=== PATIENT | male | born 1995 | race Caucasian/White ===

== ENCOUNTER 2020-03-07 15:14 | Emergency (ER) | payer SELFPAY ==
[~2020-03-07] VITALS: Ht 170.2 cm; Wt 78.0 kg
[2020-03-07 15:17] VITALS: BP 132/93
[2020-03-07] MEDS ORDERED: LIDOCAINE-MPF 1%, 5ML ONE (15:51)
[2020-03-07] MEDS ORDERED: NEOSPORIN OINT. PKT 1 PACKET ONE (16:11)
== END 2020-03-07 16:27 ==
LOC: ED 16:13
DX: S51.811A Laceration without foreign body of right forearm, initial encounter (principal); X58.XXXA Exposure to other specified factors, initial encounter; Y93.89 Activity, other specified; Y92.098 Other place in other non-institutional residence as the place of occurrence of the external cause; Y99.8 Other external cause status
CPT/HCPCS: 12031; 99284

== ENCOUNTER 2020-04-02 22:47 | Emergency (ER) | payer SELFPAY ==
[~2020-04-02] VITALS: Ht 170.2 cm; Wt 76.9 kg
[2020-04-02 23:32] LABS: BASOPHILS # (AUTO) 0.02 x10^3/uL (0-0.1); BASOPHILS % (AUTO) 0 % (0-1); EOSINOPHILS # (AUTO) 0.05 x10^3/uL (0-0.4); EOSINOPHILS % (AUTO) 1 % (1-7); LYMPHOCYTES # (AUTO) 1.69 x10^3/uL (1-3.4); LYMPHOCYTES % (AUTO) 19 % (22-44); MD NO; MEAN CORPUSCULAR HGB CONC 33.1 g/dL (33.2-36.2); MEAN CORPUSCULAR VOLUME 87.8 fL (81-97); MEAN PLATELET VOLUME 7.1 fL (7.4-10.4); MONOCYTES # (AUTO) 0.64 x10^3/uL (0.2-0.8); MONOCYTES % (AUTO) 7 % (2-9); NEUTROPHILS # (AUTO) 6.73 x10^3/uL (1.8-6.8); NEUTROPHILS % (AUTO) 74 % (42-75); PLATELET COUNT 386 x10^3/uL (130-400); RED BLOOD COUNT 5.61 x10^6/uL (4.38-5.82); RED CELL DISTRIBUTION WIDTH 13.4 % (9.4-14.8)
--- NOTE | 2020-04-02 23:33 | NUR ---
Patient presents to ER c/o vomiting and abd pain x1 day. Patient states he last vomited approx 1 hour ago. Denies trauma. Patient is in NAD. Respirations even and unlabored.
[2020-04-03 00:37] LABS: ALBUMIN 4.2 g/dL (3.4-5.0); CALCIUM 9.1 mg/dL (8.5-10.1); CHLORIDE 105 mmol/L (98-107)
[2020-04-03 00:42] LABS: ALANINE AMINOTRANSFERASE 94 U/L (12-78); ALKALINE PHOSPHATASE 97 U/L (45-117); ANION GAP 4 mmol/L (5-15); BILIRUBIN,TOTAL 0.2 mg/dL (0.2-1.0); CREATININE 1.07 mg/dL (0.7-1.3); TOTAL PROTEIN 7.9 g/dL (6.4-8.2)
[2020-04-03 01:13] VITALS: BP 158/71
== END 2020-04-03 01:24 | disposition home or self-care (01) ==
LOC: ED 23:35
DX: G89.29 Other chronic pain (principal); R10.84 Generalized abdominal pain; R11.2 Nausea with vomiting, unspecified; K58.9 Irritable bowel syndrome, unspecified
CPT/HCPCS: 36415; 74022; 80053; 83690; 85025; 99284

== ENCOUNTER 2020-07-25 16:56 | Emergency (ER) | payer SELFPAY ==
[~2020-07-25] VITALS: Ht 170.2 cm; Wt 78.5 kg
--- NOTE | 2020-07-25 18:30 | NUR ---
PT URINE SENT
[2020-07-25 18:37] LABS: ALANINE AMINOTRANSFERASE 47 U/L (12-78); ALBUMIN 3.3 g/dL (3.4-5.0); ANION GAP 6 mmol/L (5-15); CALCIUM 8.6 mg/dL (8.5-10.1); CHLORIDE 109 mmol/L (98-107); CREATININE 1.13 mg/dL (0.7-1.3)
[2020-07-25 18:40] LABS: ALKALINE PHOSPHATASE 99 U/L (45-117); BILIRUBIN,TOTAL 0.3 mg/dL (0.2-1.0); TOTAL PROTEIN 7.2 g/dL (6.4-8.2)
--- NOTE | 2020-07-25 19:15 | NUR ---
RN CALLED LAB TO SEE IF THEY HAD RUN PT URINE YET, LAB STATED "THEY HAD NOT RECIEVED IT" RN CHECKED TUBE SYSTEM AND URINE WAS IN TUBE IN TUBE PILE FOR UNKOWN REASON AFTER SENT. URINE RESENT BY RN
[2020-07-25 19:23] LABS: BASOPHILS # (AUTO) 0.05 x10^3/uL (0-0.1); BASOPHILS % (AUTO) 1 % (0-1); EOSINOPHILS # (AUTO) 0.08 x10^3/uL (0-0.4); EOSINOPHILS % (AUTO) 1 % (1-7); LYMPHOCYTES # (AUTO) 1.63 x10^3/uL (1-3.4); LYMPHOCYTES % (AUTO) 21 % (22-44); MD NO; MEAN CORPUSCULAR HEMOGLOBIN 29.5 pg (27.5-34.5); MEAN CORPUSCULAR HGB CONC 32.6 g/dL (33.2-36.2); MEAN CORPUSCULAR VOLUME 90.4 fL (81-97); MONOCYTES # (AUTO) 0.62 x10^3/uL (0.2-0.8); MONOCYTES % (AUTO) 8 % (2-9); NEUTROPHILS # (AUTO) 5.33 x10^3/uL (1.8-6.8); NEUTROPHILS % (AUTO) 69 % (42-75); PLATELET COUNT 334 x10^3/uL (130-400); RED BLOOD COUNT 5.41 x10^6/uL (4.38-5.82); RED CELL DISTRIBUTION WIDTH 13.5 % (9.4-14.8)
[2020-07-25 19:26] VITALS: BP 105/54
--- NOTE | 2020-07-25 19:27 | NUR ---
PT RESTING IN BED, PT ON MONITOR. PT DENIED WANTS OR NEEDS AT THIS TIME. RN WILL CONTINUE TO MONITOR PT
[2020-07-25 19:54] LABS: MICROSCOPIC NOT IND
== END 2020-07-25 19:48 | disposition home or self-care (01) ==
LOC: ED 18:03
DX: R10.84 Generalized abdominal pain (principal); R19.7 Diarrhea, unspecified; R53.83 Other fatigue; R94.31 Abnormal electrocardiogram [ECG] [EKG]
CPT/HCPCS: 36415; 80053; 81003; 83690; 85025; 93005; 99284

== ENCOUNTER 2020-08-14 00:24 | Emergency (ER) | payer SELFPAY ==
[~2020-08-14] VITALS: Ht 172.7 cm; Wt 76.7 kg
[2020-08-14 00:25] VITALS: BP 138/87
[2020-08-14] MEDS ORDERED: FAMOTIDINE 20 MG TABLET ONE (00:45)
--- NOTE | 2020-08-14 00:58 | NUR ---
PT REFUSING GI COCKTAIL
[2020-08-14] MEDS ORDERED: MAALOX/HYOSCYAMINE/LIDOCAINE 45 ML BTL PO ONE (01:00)
[2020-08-14] MEDS ORDERED: FAMOTIDINE 20 MG TABLET PO ONE (01:00)
[2020-08-14] MEDS ORDERED: ONDANSETRON ODT 4 MG PO ONE (01:00)
[2020-08-14 01:01] LABS: BASOPHILS % (AUTO) 1 % (0-1); EOSINOPHILS % (AUTO) 2 % (1-7); LYMPHOCYTES % (AUTO) 29 % (22-44); MEAN CORPUSCULAR HEMOGLOBIN 29.4 pg (27.5-34.5); MEAN CORPUSCULAR HGB CONC 32.9 g/dL (33.2-36.2); MEAN PLATELET VOLUME 7.1 fL (7.4-10.4); MONOCYTES % (AUTO) 9 % (2-9); NEUTROPHILS % (AUTO) 60 % (42-75); PLATELET COUNT 350 x10^3/uL (130-400); RED BLOOD COUNT 5.37 x10^6/uL (4.38-5.82); RED CELL DISTRIBUTION WIDTH 13.4 % (9.4-14.8)
[2020-08-14 01:02] LABS: MD NO
[2020-08-14 01:10] LABS: ANION GAP 4 mmol/L (5-15); CALCIUM 8.9 mg/dL (8.5-10.1); CHLORIDE 104 mmol/L (98-107)
[2020-08-14 01:13] LABS: ALANINE AMINOTRANSFERASE 78 U/L (12-78); ALKALINE PHOSPHATASE 105 U/L (45-117); BILIRUBIN,TOTAL 0.4 mg/dL (0.2-1.0); CREATININE 1.02 mg/dL (0.7-1.3); TOTAL PROTEIN 7.9 g/dL (6.4-8.2)
[2020-08-14] MEDS ORDERED: OMNIPAQUE 350 MG/ML, 100ML BOTTLE ONE (01:37)
--- NOTE | 2020-08-14 01:54 | NUR ---
PATIENT RETURNED FROM CT.
== END 2020-08-14 04:33 | disposition home or self-care (01) ==
LOC: ED 01:35
DX: K29.00 Acute gastritis without bleeding (principal); R10.84 Generalized abdominal pain; R11.2 Nausea with vomiting, unspecified; R10.12 Left upper quadrant pain; R53.83 Other fatigue
CPT/HCPCS: 36415; 74177; 80053; 83690; 85025; 99285; Q9967

== ENCOUNTER 2021-07-23 22:16 | Emergency (ER) | payer MEDICAID ==
[~2021-07-23] VITALS: Ht 172.7 cm; Wt 82.2 kg
[2021-07-23 22:20] VITALS: BP 148/90
--- NOTE | 2021-07-23 23:30 | NUR ---
Patient given discharge instructions and they have confirmed that they understand the instructions. Patient ambulatory with steady gait. NAD, all questions answered appropriately, denies additional needs at this time. No personal belongings left in room after discharge.
== END 2021-07-23 23:31 | disposition home or self-care (01) ==
LOC: ED 23:30
DX: S62.344A Nondisplaced fracture of base of fourth metacarpal bone, right hand, initial encounter for closed fracture (principal); S62.346A Nondisplaced fracture of base of fifth metacarpal bone, right hand, initial encounter for closed fracture; X58.XXXA Exposure to other specified factors, initial encounter; Y93.89 Activity, other specified; Y92.89 Other specified places as the place of occurrence of the external cause; Y99.8 Other external cause status
CPT/HCPCS: 29125; 99283

== ENCOUNTER 2021-08-05 15:06 | Emergency (ER) | payer MEDICAID ==
[~2021-08-05] VITALS: Ht 167.6 cm; Wt 82.6 kg
[2021-08-05 15:12] VITALS: BP 131/99
[2021-08-05 16:30] LABS: ALANINE AMINOTRANSFERASE 80 U/L (12-78); ALBUMIN 3.5 g/dL (3.4-5.0); ANION GAP 4 mmol/L (5-15); CALCIUM 8.9 mg/dL (8.5-10.1); CHLORIDE 106 mmol/L (98-107); CREATININE 0.96 mg/dL (0.7-1.3)
[2021-08-05 16:32] LABS: ALKALINE PHOSPHATASE 99 U/L (45-117); BASOPHILS % (AUTO) 1 % (0-1); BILIRUBIN,TOTAL 0.2 mg/dL (0.2-1.0); EOSINOPHILS % (AUTO) 1 % (1-7); LYMPHOCYTES % (AUTO) 25 % (22-44); MEAN CORPUSCULAR HEMOGLOBIN 29.8 pg (27.5-34.5); MEAN CORPUSCULAR HGB CONC 34.5 g/dL (33.2-36.2); MEAN PLATELET VOLUME 7.2 fL (7.4-10.4); MONOCYTES % (AUTO) 8 % (2-9); NEUTROPHILS % (AUTO) 65 % (42-75); PLATELET COUNT 436 x10^3/uL (130-400); RED BLOOD COUNT 5.58 x10^6/uL (4.38-5.82); RED CELL DISTRIBUTION WIDTH 12.7 % (9.4-14.8); TOTAL PROTEIN 7.5 g/dL (6.4-8.2)
--- NOTE | 2021-08-05 19:10 | NUR ---
pt to room from lobby
== END 2021-08-05 20:50 | disposition home or self-care (01) ==
LOC: ED 19:29
DX: R10.12 Left upper quadrant pain (principal)
CPT/HCPCS: 36415; 80053; 83690; 85025; 99283